=== PATIENT | female | born 1985 | race Caucasian/White ===

== ENCOUNTER 2025-03-14 16:38 | Emergency (ER) | payer OTHER ==
[~2025-03-14] VITALS: Ht 170.2 cm; Wt 63.5 kg
[2025-03-14 17:22] VITALS: BP 181/80; TEMP 98
[2025-03-14] MEDS ORDERED: TRAZ-182 PO (18:27)
[2025-03-14] MEDS ORDERED: ONDA4TAB5 PO (18:27)
[2025-03-14] MEDS ORDERED: ONDANSETRON 4 MG TAB.RAPDIS ONE (18:31)
[2025-03-14 18:32] VITALS: O2SAT 99
[2025-03-14] MEDS: ONDANSETRON 4 MG TAB.RAPDIS SL ONE (18:32)
== END 2025-03-14 18:32 | disposition home or self-care (01) ==
LOC: ER 16:51
DX: F41.9 Anxiety disorder, unspecified (principal); F32.A Depression, unspecified; R11.0 Nausea; G47.00 Insomnia, unspecified
CPT/HCPCS: 99283; Q0162